=== PATIENT | female | born 1995 | race African-American/Black ===

== ENCOUNTER 2019-12-08 07:21 | Emergency (ER) | payer OTHER ==
[~2019-12-08] VITALS: Ht 167.6 cm; Wt 59.0 kg
[2019-12-08 07:27] VITALS: BP 124/78
--- NOTE | 2019-12-08 07:30 | NUR ---
SEEN AND EXAMINED BY .
--- NOTE | 2019-12-08 07:32 | NUR ---
Patient discharged in custody in stable condition. Written and verbal after care instructions given. Patient verbalizes understanding of instruction.
== END 2019-12-08 07:34 ==
LOC: ER 07:22
DX: Z04.1 Encounter for examination and observation following transport accident (principal); V49.49XA Driver injured in collision with other motor vehicles in traffic accident, initial encounter; Y93.89 Activity, other specified; Y92.413 State road as the place of occurrence of the external cause; Y99.8 Other external cause status